=== PATIENT | female | born 1970 | race Caucasian/White ===

== ENCOUNTER 2019-08-17 12:49 | Emergency (ER) | payer OTHER, MEDICAID ==
[~2019-08-17] VITALS: Ht 162.6 cm; Wt 65.8 kg
[2019-08-17 12:49] VITALS: BP_SYST 126
--- NOTE | 2019-08-17 12:49 | NUR ---
BROUGHT BACK TO HALLWAY, PLACED IN BED AND TRIAGED. REPORT GIVEN TO MARLEE
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
--- NOTE | 2019-08-17 13:12 | NUR ---
Patient given written and verbal discharge instructions and verbalizes understanding. ER MD discussed with patient the results and treatment provided. Patient in stable condition. ID arm band removed. Rx of NONE given. Patient educated on pain management and to follow up with PMD. Pain Scale . Opportunity for questions provided and answered. Medication side effect fact sheet provided.
== END 2019-08-17 13:11 ==
LOC: SED 12:49
DX: Z13.89 Encounter for screening for other disorder (principal)
CPT/HCPCS: 99283

== ENCOUNTER 2021-10-23 11:46 | Emergency (ER) | payer OTHER, MEDICAID ==
[~2021-10-23] VITALS: Ht 160 cm; Wt 59.0 kg
[2021-10-23 11:58] VITALS: BP_SYST 142
--- NOTE | 2021-10-23 12:40 | NUR ---
PLACED IN HALLWAY BED AND PT RESTING QUIETLY
[2021-10-23] MEDS ORDERED: KETOROLAC TROMETHAMINE 30 MG VIAL IM ONE (13:00)
[2021-10-23] MEDS ORDERED: PENICILLIN V POTASSIUM 250 MG TABLET PO ONE (13:00)
--- NOTE | 2021-10-23 13:00 | NUR ---
ER at bedside examining patient.
--- NOTE | 2021-10-23 13:22 | NUR ---
Assumd care of pt and pt is in hallway bed resting with no s/s of distress. VSS. Pt is A&Ox4 but can be verbally agressive. NKA. Has hx of psych issues and substance abuse. No chest pain and no sob. Denies n/v. C/O toothache for a long time she states. Rates pain 10/10 constant non-radiating.
[2021-10-23] MEDS ORDERED: IBUP-1969 PO (13:33)
[2021-10-23] MEDS ORDERED: PENI500T PO (13:33)
[2021-10-23 13:44] VITALS: BP_SYST 138
--- NOTE | 2021-10-23 13:45 | NUR ---
Patient given written and verbal discharge instructions and verbalizes understanding. ER MD discussed with patient the results and treatment provided. Patient in stable condition. ID arm band removed. Rx of Ibuprofen and Penicillin given. Patient educated on pain management and to follow up with PMD. Pain Scale 0/10. Opportunity for questions provided and answered. Medication side effect fact sheet provided.
== END 2021-10-23 13:45 | disposition home or self-care (01) ==
LOC: SED 11:46
DX: K02.9 Dental caries, unspecified (principal); K08.89 Other specified disorders of teeth and supporting structures; F17.200 Nicotine dependence, unspecified, uncomplicated; Z87.898 Personal history of other specified conditions; Z79.899 Other long term (current) drug therapy
CPT/HCPCS: 99283; J1885

== ENCOUNTER 2021-10-25 05:22 | Emergency (ER) | payer OTHER, MEDICAID ==
[~2021-10-25] VITALS: Ht 165.1 cm; Wt 65.8 kg
[~2021-10-25 05:22] MED LIST: IBUP-1969 PO; PENI500T PO
--- NOTE | 2021-10-25 05:37 | NUR ---
Pt to ER w/ c/o bilateral ear pain with "fuzzy sounds", nausea, and left shoulder pain. Pt denies chest pain or SOB. Respirations even and unlabored. Normal skin color for ethnicity. Pt ambulates with strong steady gait.
[2021-10-25 05:39] VITALS: BP_SYST 118
--- NOTE | 2021-10-25 06:02 | NUR ---
Report given to CATALINO Paez. Pt brought to bed 4 at this time.
--- NOTE | 2021-10-25 06:16 | NUR ---
ANA ROSA RN C/O LEFT EAR PAIN X2 WEEKS "FUZZY SOUND". LEFT SHOULDER PAIN "FEW DAYS AGO" DENIES INJURY, C/O NAUSEA X2 HOURS. NOVOMITING, FEVER OR DIAHREA. DR. JOLLEY AT BEDSIDE EXAM/ EVAL
[2021-10-25] MEDS ORDERED: CIPR7.5D OT (06:39)
[2021-10-25 06:46] VITALS: BP_SYST 120
--- NOTE | 2021-10-25 06:47 | NUR ---
PT STABLE FOR D/C TO HOME. TO LOBBY AMB WITH ALL PAPEROWRK/RX IN HAND
== END 2021-10-25 06:44 | disposition home or self-care (01) ==
LOC: SED 05:22
DX: T16.2XXA Foreign body in left ear, initial encounter (principal); H60.92 Unspecified otitis externa, left ear; W45.8XXA Other foreign body or object entering through skin, initial encounter; Y93.89 Activity, other specified; Y92.89 Other specified places as the place of occurrence of the external cause; Y99.8 Other external cause status
CPT/HCPCS: 99284